=== PATIENT | male | born 1955 | race Caucasian/White ===

== ENCOUNTER 2016-04-28 01:35 | Emergency (ER) | payer MEDICAID ==
[2016-04-28 01:41] VITALS: RESP 17
[2016-04-28] MEDS ORDERED: KETOROLAC 30 MG/1 ML SDV ONE (02:04)
[2016-04-28] MEDS ORDERED: METOCLOPRAMIDE 10 MG/2 ML VIAL ONE (02:04)
[2016-04-28] MEDS ORDERED: DEXAMETHASONE 10 MG/ML VIAL ONE (02:04)
[2016-04-28] MEDS ORDERED: NS 1,000 ML IV ONE (02:10)
[2016-04-28] MEDS ORDERED: KETOROLAC 30 MG/1 ML SDV IM ONE (02:43)
[2016-04-28] MEDS ORDERED: DEXAMETHASONE VARIABLE DOSE IVP ONE (02:43)
[2016-04-28] MEDS ORDERED: METOCLOPRAMIDE 10 MG/2 ML VIAL IVP ONE (02:43)
--- NOTE | 2016-04-28 03:09 | EDPHY ---
H & P Stated Complaint: migraine Time Seen by Provider: 04/28/16 02:09 HPI/ROS: HPI The patient presents with headache which has been present for the last 1 day which is right-sided and retro orbital, throbbing in nature, and has been constant. It started slowly and feels like his prior migraine headaches. He has mild photophobia, no phonophobia. He does not have a fever or neck stiffness. He normally takes sumatriptan, however does not have a prescription for this currently.. REVIEW OF SYSTEMS Constitutional: No fever, no chills. Eyes: No discharge. ENT: No sore throat. Cardiovascular: No chest pain, no palpitations. Respiratory: No cough, no shortness of breath. Gastrointestinal: No abdominal pain, no vomiting. Genitourinary: No hematuria. Musculoskeletal: No back pain. Skin: No rashes. Neurological: + headache. PMHx: Chronic schizophrenia, history of migraine headache Soc Hx: Marijuana use, housed with roommates FHx: PHYSICAL General Appearance: Alert, no distress Eyes: Pupils equal and round no pallor or injection ENT, Mouth: Mucous membranes moist Respiratory: There are no retractions, lungs are clear to auscultation Cardiovascular: Regular rate and rhythm Gastrointestinal: Abdomen is soft and non-tender, no masses, bowel sounds normal Neurological: A&O, cranial nerves 2-12 intact, 5/5 strength in upper and lower extremities which is symmetric, normal gait Skin: Warm and dry, no rashes Musculoskeletal: Neck is supple non tender Extremities: symmetrical, full range of motion Psychiatric: Patient is oriented X 3, there is no agitation - Personal History Current Tetanus/Diphtheria Vaccine: Yes - Medical/Surgical History Hx Asthma: No Hx Chronic Respiratory Disease: No Hx Diabetes: No Hx Cardiac Disease: No Hx Renal Disease: No Hx Cirrhosis: No Hx Alcoholism: No Hx HIV/AIDS: No Hx Splenectomy or Spleen Trauma: No Other PMH: PSHx: states yes but cannot give any further info. PMHx: Schizo per [employer] - Social History Smoking Status: Current every day smoker Constitutional: Initial Vital Signs Temperature (C) 36.3 C 04/28/16 01:37 Heart Rate 78 04/28/16 01:37 Respiratory Rate 17 04/28/16 01:37 Blood Pressure 140/107 H 04/28/16 01:37 O2 Sat (%) 93 04/28/16 01:37 O2 Delivery Mode Room Air Allergies/Adverse Reactions: No Known Allergies Allergy (Unverified 01/01/15 12:14) Home Medications: Medication Instructions Recorded NK [No Known Home Meds] 01/01/15 Medical Decision Making Differential Diagnosis: This is a 61-year-old man with schizophrenia, history of marijuana use, migraine headache who presents from home with a headache which is unilateral, throbbing associated with photophobia, similar to his prior migraine headaches. On exam, he has a normal neurologic evaluation. Differential diagnosis includes migraine headache, tension type headache, sinusitis. I doubt meningitis or any serious infection, given no nuchal rigidity. I doubt subarachnoid hemorrhage given slow onset of headache and feeling similar to prior migraines. In the emergency room, patient was given IV fluids and medications for his headache with complete resolution of his symptoms. He will be discharged home. He says he can go to the pharmacy tomorrow to pickle pumper ibuprofen or Tylenol for his pain. - Data Points Medications Given: Discontinued Medications Dexamethasone Sodium Phosphate (Decadron) 10 mg IVP EDNOW ONE Stop: 04/28/16 02:44 Last Admin: 04/28/16 02:46 Dose: 10 mg Diphenhydramine HCl (Benadryl Injection) 25 mg IVP EDNOW ONE Stop: 04/28/16 02:44 Last Admin: 04/28/16 02:47 Dose: 25 mg Sodium Chloride (Ns) 1,000 mls @ 900 mls/hr IV EDNOW ONE Stop: 04/28/16 03:16 Last Admin: 04/28/16 02:10 Dose: 1,000 mls Ketorolac Tromethamine (Toradol) 30 mg IM EDNOW ONE Stop: 04/28/16 02:44 Last Admin: 04/28/16 02:47 Dose: 30 mg Metoclopramide HCl (Reglan Injection) 10 mg IVP EDNOW ONE Stop: 04/28/16 02:44 Last Admin: 04/28/16 02:47 Dose: 10 mg Departure - Departure Disposition: Home, Routine, Self-Care Clinical Impression: Migraine Condition: Good Instructions: Migraine Headache (ED) Referrals: [facility] [Outside] - As per Instructions
[2016-04-28 03:22] VITALS: BP 167/102; PULSE 82; TEMP 98.6; O2SAT 95
== END 2016-04-28 03:20 | disposition home or self-care (01) ==
DX: G43.909 Migraine, unspecified, not intractable, without status migrainosus (principal); F17.200 Nicotine dependence, unspecified, uncomplicated
CPT/HCPCS: 96374; J1200; J1885; J2765